=== PATIENT | male | born 1985 | race Caucasian/White ===

== ENCOUNTER 2016-11-29 13:44 | Emergency (ER) | payer SELFPAY ==
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
[2016-11-29 15:33] VITALS: BP 118/75
--- NOTE | 2016-12-01 13:58 | CR ---
EXAM DATE: 11/29/16 PATIENT'S AGE: 31 Patient: GAMALIEL PADILLA Facility: [place], [place] Site . Site : 1985 Study: XRay Extremity Left FOOT [id number]/3/2017 2:55:55 PM Ordering Physician: Papa Linares Final Report: INDICATION: Left foot injury. Fell yesterday. TECHNIQUE: AP and lateral views of the left foot. COMPARISON: Today`s left ankle x-rays. FINDINGS: No obvious soft tissue swelling, fracture or subluxation. IMPRESSION: Negative left foot. Dictated by Mukul Valera MD @ Nov 29 2016 3:08PM (Electronic Signature) Report Signed by Proxy. ANTHONY
--- NOTE | 2016-12-01 13:59 | CR ---
EXAM DATE: 11/29/16 PATIENT'S AGE: 31 Patient: GAMALIEL PADILLA Facility: [place], [place] Site . Site : 1985 Study: XRay Extremity Left ANKLE [id number]/3/2017 2:57:18 PM Ordering Physician: Papa Linares Final Report: INDICATION: Left ankle injury. Fell yesterday. TECHNIQUE: Three views of the left ankle. COMPARISON: Today`s left foot x-rays. FINDINGS: Mild to moderate generalized soft tissue swelling. No fracture or other abnormality. IMPRESSION: Apparent ankle sprain with mild to moderate generalized soft tissue swelling. Dictated by Mukul Valera MD @ Nov 29 2016 3:08PM (Electronic Signature) Report Signed by Proxy. ANTHONY
--- NOTE | 2016-12-01 14:00 | CR ---
EXAM DATE: 11/29/16 PATIENT'S AGE: 31 Patient: GAMALIEL PADILLA Facility: [place], [place] Site . Site : 1985 Study: XRay Chest Left RIBS [id number]/3/2017 2:59:13 PM Ordering Physician: Papa Linares Final Report: INDICATION: Left rib pain. TECHNIQUE: PA image of the chest and three views of the left ribs. COMPARISON: None. FINDINGS: No left rib fracture or destruction. Lungs and pleural spaces clear. Heart size and pulmonary vasculature within normal limits. IMPRESSION: Negative left ribs. Dictated by Mukul Valera MD @ Nov 29 2016 3:08PM (Electronic Signature) Report Signed by Proxy. ANTHONY
== END 2016-11-29 15:30 | disposition home or self-care (01) ==
LOC: MW.ED 13:44
DX: S29.9XXA Unspecified injury of thorax, initial encounter (principal); S99.912A Unspecified injury of left ankle, initial encounter; F17.210 Nicotine dependence, cigarettes, uncomplicated; W13.2XXA Fall from, out of or through roof, initial encounter
CPT/HCPCS: 71101-26-LT; 71101-LT; 73610-26-LT; 73610-LT; 73620-26-LT; 73620-LT; 99283

== ENCOUNTER 2017-01-28 15:17 | Emergency (ER) | payer SELFPAY ==
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
[2017-01-28] MEDS: Acetaminophen 325 MG Tab PO ONE ×2 (15:52→15:54)
[2017-01-28] MEDS ORDERED: Acetaminophen 500 MG Tab PO ONE (15:53)
[2017-01-28 18:35] VITALS: BP 122/82
--- NOTE | 2017-02-01 11:12 | CR ---
EXAM DATE: 01/28/17 PATIENT'S AGE: 31 Patient: GAMALIEL PADILLA Facility: [place], [place] Site . Site : 1985 Study: XRay Chest RIBS [id number]/1/2017 4:48:53 PM Ordering Physician: Papa Linares Final Report: INDICATION: pain TECHNIQUE: Chest 1 view and right rib series COMPARISON: None FINDINGS: Cardiovascular and mediastinum: Heart size and vasculature are normal in caliber and appearance. Mediastinum is within normal limits. Lungs and pleural space: No focal consolidation. No sign of pleural effusion. No pneumothorax. Bones and soft tissues: No significant findings. IMPRESSION: No acute cardiopulmonary disease. Dictated by Timoteo Lopez MD @ 01/28/2017 4:52:11 PM Dictated by: Timoteo Lopez MD @ 01/28/2017 16:52:18 (Electronic Signature) Report Signed by Proxy. [facility]
== END 2017-01-28 17:04 | disposition home or self-care (01) ==
LOC: MW.ED 15:17
DX: S29.9XXA Unspecified injury of thorax, initial encounter (principal); F17.210 Nicotine dependence, cigarettes, uncomplicated; W13.2XXA Fall from, out of or through roof, initial encounter
CPT/HCPCS: 71101; 99283; A9270; 99282

== ENCOUNTER 2017-09-02 17:18 | Emergency (ER) | payer SELFPAY ==
[2017-09-02 17:30] VITALS: BP 113/78
[2017-09-02] MEDS ORDERED: Ketorolac 60 MG/2 ML SDV IM ONE (17:34)
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
--- NOTE | 2017-09-05 09:19 | CR ---
EXAM DATE: 09/02/17 PATIENT'S AGE: 32 Patient: GAMALIEL PADILLA Facility: [place], [place] Site . Site : 1985 Study: XRay Chest [id number]/6/2018 5:55:27 PM Ordering Physician: Steven Sierra Final Report: INDICATION: Pain, Left Medial Posterior Ribs TECHNIQUE: Chest 2 views and left rib series COMPARISON: June 01, 2016 FINDINGS: Cardiovascular and mediastinum: Heart size and vasculature are normal in caliber and appearance. Mediastinum is within normal limits. Lungs and pleural spaces: No focal consolidation. No sign of pleural effusion. No pneumothorax. Bones and soft tissues: No significant findings. IMPRESSION: No acute cardiopulmonary disease or left-sided rib abnormality Dictated by Timoteo Lopez MD @ 09/02/2017 6:14:58 PM Dictated by: Timoteo Lpoez MD @ 09/02/2017 18:15:11 (Electronic Signature) Report Signed by Proxy. [facility]ITAL[facility]ajwinder
--- NOTE | 2017-09-05 09:20 | CR ---
EXAM DATE: 09/02/17 PATIENT'S AGE: 32 Patient: GAMALIEL PADILLA Facility: [place], [place] Site . Site : 1985 Study: XRay Chest Left [id number] ribs-09/02/2017 5:55:53 PM Ordering Physician: Steven Sierra Final Report: INDICATION: Pain, Left Medial Posterior Ribs TECHNIQUE: Chest 2 views and left rib series COMPARISON: June 01, 2016 FINDINGS: Cardiovascular and mediastinum: Heart size and vasculature are normal in caliber and appearance. Mediastinum is within normal limits. Lungs and pleural spaces: No focal consolidation. No sign of pleural effusion. No pneumothorax. Bones and soft tissues: No significant findings. IMPRESSION: No acute cardiopulmonary disease or left-sided rib abnormality Dictated by Timoteo Lopez MD @ 09/02/2017 6:14:58 PM Dictated by: Timoteo Lopez MD @ 09/02/2017 18:15:28 (Electronic Signature) Report Signed by Proxy. [facility] SYSTEM[facility]ajwinder
== END 2017-09-02 18:52 | disposition home or self-care (01) ==
LOC: MW.ED 17:18
DX: R07.81 Pleurodynia (principal); G89.29 Other chronic pain; F17.210 Nicotine dependence, cigarettes, uncomplicated; W18.09XA Striking against other object with subsequent fall, initial encounter
CPT/HCPCS: 71046; 71046-26; 71100-26-LT; 71100-LT; 99283